=== PATIENT | male | born 1965 | race Hispanic/Latino ===

== ENCOUNTER 2023-02-20 19:06 | Emergency (ER) | payer SELFPAY ==
[2023-02-20] MEDS ORDERED: GENTAMICIN0.3 % OS (21:45)
[2023-02-20 21:53] VITALS: BP 115/60
== END 2023-02-20 22:08 | disposition home or self-care (01) | DRG 125 ==
LOC: ED 19:06
DX: S05.02XA Injury of conjunctiva and corneal abrasion without foreign body, left eye, initial encounter (principal); X58.XXXA Exposure to other specified factors, initial encounter